=== PATIENT | female | born 1985 | race African-American/Black ===

== ENCOUNTER 2025-03-21 11:55 | Emergency (ER) | payer OTHER ==
[2025-03-21 12:03] VITALS: BMI 31.4
[2025-03-21] MEDS ORDERED: ONDANSETRON 4 MG/2 ML VIAL ONE (13:26)
[2025-03-21] MEDS ORDERED: KETOROLAC TROMETHAMINE 30 MG/1 ML VIAL ONE (13:26)
[2025-03-21] MEDS ORDERED: ACETAMINOPHEN INJECTION 100 ML ONE (13:26)
[2025-03-21] MEDS: ACETAMINOPHEN 1000 MG/100 ML BAG IVPB ONE (13:27)
[2025-03-21] MEDS: ONDANSETRON 4 MG/2 ML VIAL IVPUSH ONE (13:28)
[2025-03-21] MEDS: KETOROLAC TROMETHAMINE 30 MG/1 ML VIAL IVPUSH ONE (13:28)
[2025-03-21 13:29] LABS: MCHC 33.8 g/dl (32.2-35.5); MEAN CELL VOLUME 89.7 fl (79.4-94.8); MEAN PLT VOLUME 12.1 fl (9.4-12.3); RDW 12.1 % (12.1-16.8)
[2025-03-21] MEDS: SODIUM CHLORIDE 0.9% 500 ML INFUS.BAG IV ONE (13:29)
[2025-03-21 13:57] LABS: GLUCOSE,RANDOM 88.0 mg/dL (74-106); TOT PROT 8.0 g/dl (6.4-8.2)
[2025-03-21 13:58] LABS: CO2 24.0 mmol/L (21-32)
[2025-03-21 14:00] LABS: ALK PHOS 43.0 U/L (40-150)
[2025-03-21 14:02] LABS: SGOT/AST 20.0 U/L (5-34); SGPT/ALT 13.0 U/L (0-55)
[2025-03-21 14:03] LABS: CREATININE 0.81 mg/dL (0.55-1.3)
[2025-03-21 14:22] LABS: HCV DIAGNOSTIC IN-HOUSE W/RFLX NON-REACTIVE (NONREACTIVE); HIV INTERPRETATION NEGATIVE (NEGATIVE)
[2025-03-21 17:24] VITALS: BP 131/92; PULSE 72; RESP 20; TEMP 98.2
== END 2025-03-21 17:37 | disposition home or self-care (01) ==
LOC: JER 11:55
PROC: 3E033NZ Introduction of Analgesics, Hypnotics, Sedatives into Peripheral Vein, Percutaneous Approach (ICD-10-PCS; principal; 2025-03-21)
PROC: 3E0333Z Introduction of Anti-inflammatory into Peripheral Vein, Percutaneous Approach (ICD-10-PCS; 2025-03-21)
PROC: 3E033GC Introduction of Other Therapeutic Substance into Peripheral Vein, Percutaneous Approach (ICD-10-PCS; 2025-03-21)
DX: G43.109 Migraine with aura, not intractable, without status migrainosus (principal); H57.13 Ocular pain, bilateral
CPT/HCPCS: 36415; 70450-TC; 80053; 83735; 84703; 85025; 86803; 87389